=== PATIENT | male | born 1985 | race Caucasian/White ===

== ENCOUNTER 2020-02-10 14:10 | Emergency (ER) | payer MEDICAID, SELFPAY ==
[2020-02-10 14:17] VITALS: BP 113/73; PULSE 80; RESP 18; TEMP 37.1; O2SAT 100; BMI 22.6
--- NOTE | 2020-02-10 14:22 | HMH.EDGENADL ---
ED Disposition Clinical Impression: Bronchitis Disposition: Home, Self-Care Condition on Discharge: Good Referrals: PCP,No [Primary Care Provider] - - Critical Care Critical Care Time: No Attestation: On , the high probability of a clinically significant, sudden or life threatening deterioration of the following system(s) required my full and direct attention, intervention and personal management. The time I documented below is in addition to time spent performing reported procedures but includes the following listed in this critical care notation. Medical Decision Making - Medical Records Medical records reviewed: Yes: I reviewed the patient's medical records. - Aamir Inquiry Pt receiving controlled substance: No Vital Signs: 02/10/20 14:17 Temperature 98.7 F Temperature Source Oral Pulse Rate [Radial] 80 Respiratory Rate 18 Blood Pressure [Right Arm] 113/73 Blood Pressure Mean [Right Arm] 86 Blood Pressure Source [Right Arm] Automatic Cuff Blood Pressure Position [Right Arm] Sitting 02 Sat by Pulse Oximetry 100 Oxygen Delivery Method Room Air Orders (Tests/Meds): ORDERS Category Date Time Status Covid-19 Nasal PCR ([facility]) Routine Lab 02/10/20 14:21 Ordered Medical Decision Narrative: 34-year-old male presenting with cough, sore throat, malaise, nausea and decreased appetite. Nontoxic, afebrile, hemodynamically stable, oxygenating well on room air. Normal vital signs here. Benign exam. No meningismus. He does have some bronchospasm on exam and this is likely from bronchitis. I will prescribe him albuterol for this. I will also send off COVID-19 PCR. Further work-up is not indicated including chest x-ray today. He will follow up with PCP in 2 days. General Adult HPI - General Chief complaint: Upper Respiratory Infection Stated complaint: Sore throat, cough Time Seen by Provider: 02/10/20 14:22 Mode of Arrival: Ambulatory Limitations: No Limitations Description of Symptoms (Recalled from ER Triage Doc. by RN): FLU LIKE SYMPTOMS FOR 3 DAYS NOW. - History of Present Illness HPI narrative: This is a 34-year-old male who presents with a 2-day history of dry cough, sore throat, body aches nausea. He says marijuana makes his nausea better. Fever, chills, vomiting, shortness of breath, chest pain, rash, abdominal pain. No known sick contacts - Related Data Allergies Allergy/AdvReac Type Severity Reaction Status Date / Time vancomycin Allergy Verified 02/10/20 14:22 [facility] History - Hepatitis A Screen Drug use history?: Yes High risk sexual behaviors?: No History of sexually transmitted infection?: No Currently employed?: No Childcare worker?: No Do you have indoor plumbing?: Yes Do you have electricity?: Yes Attestation statement:: This patient has been screened for Hepatitis A risk factors. I have reviewed the patient's past medical history: Yes - Social History Smoking Status: Current every day smoker Tobacco Type: cigarettes # Packs/Day (cigarettes): 2 Alcohol Intake: never Substance Use Type: marijuana, opiates Occupational Status: other ROS Obtained: Yes All systems reviewed & no additional complaints Physical Exam General: well developed, well hydrated, no acute distress Head: Normocephalic, atraumatic EENT: airway patent, mucous membranes moist. extraocular muscles intact. external ears are within normal limits Neck: supple. trachea is midline Heart: rate is normal, rhythm is normal. No murmurs appreciated Lungs: Bronchospastic bilaterally with normal effort and good air movement. Symmetrical chest rise Abdomen/GI: soft, non-tender, non-distended. Extremities: global full range of motion. atraumatic. well-perfused. Neuro: Awake, alert and oriented to person, place, time and situation. Strength and sensation globally intact in all extremities. Skin: no pallor, cyanosis or jaundice. No rash. - General General appearance: alert - Respir
[2020-02-10 14:45] VITALS: BP 113/73; PULSE 80; RESP 18; TEMP 37.1; O2SAT 100
== END 2020-02-10 14:45 | disposition home or self-care (01) ==
LOC: ER 15:27
PROVIDERS: Emergency Provider Physician Assistant
DX: Z20.828 Contact with and (suspected) exposure to other viral communicable diseases (principal); J20.9 Acute bronchitis, unspecified; F12.10 Cannabis abuse, uncomplicated; F17.210 Nicotine dependence, cigarettes, uncomplicated
CPT/HCPCS: 99282; U0003

== ENCOUNTER 2020-04-28 14:50 | Emergency (ER) | payer MEDICAID, SELFPAY ==
--- NOTE | 2020-04-28 14:49 | ECG_ITS ---
APPROVED REPORT Exam: Resting ECG HR:64 bpm ECG Measurements Heart Rate 64 AXES RI 108 P 36 QRSd 82 QRS 57 QT 398 T 56 QTc 410 Conclusion Sinus rhythm with short RI Septal infarct, age undetermined Abnormal ECG Electronically signed by : Raffy Zungia, 04/30/2020 19:31:47
[2020-04-28 14:51] VITALS: BP 127/75; PULSE 65; RESP 18; TEMP 36.9; O2SAT 100; BMI 23.3
[2020-04-28 14:52] VITALS: BMI 23.3
--- NOTE | 2020-04-28 14:53 | XR_ITS ---
PROCEDURE: XR CHEST 2V CLINICAL HISTORY: cough Cough and congestion COMPARISON: No exams were available for comparison FINDINGS: The cardiomediastinal silhouette and pulmonary vascularity are within normal limits. The lungs are clear without infiltrates, suspicious nodules, or pleural effusions. No acute bony anomalies. There is fusion L1 and L2 vertebral bodies IMPRESSION: No acute findings. Dictated by: Jarett Brooks MD 04/28/2020 16:22 Jarett Brooks MD in [place] 04/28/2020 16:22
--- NOTE | 2020-04-28 15:01 | HMH.EDGENADL ---
ED Disposition Clinical Impression: Viral upper respiratory illness, Suspected COVID-19 virus infection, Exposure to COVID-19 virus Disposition: Home, Self-Care Condition on Discharge: Good Instructions: DI for COVID-19 (Suspected or Confirmed ) Additional Instructions: Quarantine for 10 days. Off work until quarantine is over. Call back to the emergency department in 3 hrs to obtain your COVID-19 test result. Quarantine yourself until you obtain your result. Return to the emergency room if worsening shortness of breath, severe weakness, vomiting and unable to keep down liquids. Referrals: PCP,No [Primary Care Provider] - - Critical Care Critical Care Time: No Attestation: On , the high probability of a clinically significant, sudden or life threatening deterioration of the following system(s) required my full and direct attention, intervention and personal management. The time I documented below is in addition to time spent performing reported procedures but includes the following listed in this critical care notation. Medical Decision Making - Aamir Inquiry Pt receiving controlled substance: No Vital Signs: 04/28/20 14:51 04/28/20 16:15 Temperature 98.4 F 98.2 F Temperature Source Oral Oral Pulse Rate 74 Pulse Rate [Right Radial] 65 Respiratory Rate 18 16 Blood Pressure 122/64 Blood Pressure [Right Arm] 127/75 Blood Pressure Mean [Right Arm] 92 Blood Pressure Source Automatic Cuff Blood Pressure Source [Right Arm] Automatic Cuff Blood Pressure Position Sitting Blood Pressure Position [Right Arm] Sitting 02 Sat by Pulse Oximetry 100 Oxygen Delivery Method Room Air Orders (Tests/Meds): ORDERS Category Date Time Status Covid-19 Nasal PCR Sendout P&C Routine Lab 04/28/20 15:00 Received - Radiology Data #1 Image(s): Chest Image Reviewed: Yes I reviewed the patient's radiology image Preliminary Findings: Normal/NAD - ECG Data Tracing #1 EKG interpreted by Osei Gonzalez MD: Rhythm: sinus Rate: 64 [place]: normal Ectopy: none Conduction: VT [address] Segment Changes: none T Wave Changes: none Q Waves: none Poor R wave progression - ANGELA Score for Non-Stemi Age of Patient: 30-39 years old Heart Rate: 50-69 bpm Systolic Blood Pressure: 120-139 mmhg CHF Killip Class: I-No CHF Other Risk Factors: None General Adult HPI - General Stated complaint: cough, sore throat Time Seen by Provider: 04/28/20 15:32 - History of Present Illness HPI narrative: Patient states I think I have Covid . States that his roommate was diagnosed on Monday, 6 days ago. He began getting symptoms yesterday. Said he had a headache last night, although he did go to work yesterday. Today has a dry cough associated with chest pain when he coughs. No vomiting or diarrhea. Occasionally feels a little short of breath. Denies fever. Has previously been tested for Covid once. - Related Data Previous Rx's Medication Instructions Recorded Albuterol Sulfate [Albuterol 6.7 gm IH Q4HP PRN #1 hfa.aer.ad 02/10/20 Sulfate Hfa] Benzonatate [Tessalon Perle 100mg 100 mg PO TID PRN #15 cap 02/10/20 Cap*] Allergies Allergy/AdvReac Type Severity Reaction Status Date / Time vancomycin Allergy Verified 02/10/20 14:22 [facility] History - Hepatitis A Screen Attestation statement:: This patient has been screened for Hepatitis A risk factors. I have reviewed the patient's past medical history: Yes - Social History Smoking Status: Current every day smoker Tobacco Type: cigarettes # Packs/Day (cigarettes): 2 Alcohol Intake: never Substance Use Type: marijuana, opiates Occupational Status: other ROS Obtained: Yes Systems reviewed as appropriate & no additional complaints - Constitutional Constitutional: Denies fever(s) - Respiratory Respiratory: Reports cough, Reports dyspnea, Denies excessive phlegm production, Reports pain with cough - Gastrointestinal
[2020-04-28 16:15] VITALS: BP 122/64; PULSE 74; RESP 16; TEMP 36.8; O2SAT 98
[2020-04-30 11:41] LABS: Covid-19 Nasal PCR Sendout P&C NEGATIVE
== END 2020-04-28 16:17 | disposition home or self-care (01) ==
PROVIDERS: Emergency Provider Emergency Medicine
DX: Z20.822 Contact with and (suspected) exposure to COVID-19 (principal); J06.9 Acute upper respiratory infection, unspecified; F17.210 Nicotine dependence, cigarettes, uncomplicated
CPT/HCPCS: 71046; 93005; 99282; U0004

== ENCOUNTER 2021-02-14 13:05 | Emergency (ER) | payer MEDICAID, SELFPAY ==
[2021-02-14 13:18] VITALS: BP 116/74; PULSE 64; RESP 17; TEMP 36.7; O2SAT 99; BMI 19.2
[2021-02-14 14:00] VITALS: BP 116/74; PULSE 64; RESP 17; TEMP 36.7; O2SAT 99; BMI 19.2
--- NOTE | 2021-02-14 14:46 | XR_ITS ---
PROCEDURE INFORMATION: Exam: XR Chest Exam date and time: 02/14/2021 2:46 PM Age: 35 years old Clinical indication: Other: Congestion; Additional info: Congestion, lung pain TECHNIQUE: Imaging protocol: XR of the chest. Views: 2 views. COMPARISON: CR XR CHEST 2V 04/28/2020 3:20 PM FINDINGS: Lungs: Unremarkable. No consolidation. Pleural spaces: Unremarkable. No pleural effusion. No pneumothorax. Heart/Mediastinum: Unremarkable. No cardiomegaly. Bones/joints: Unremarkable. IMPRESSION: No acute findings.
--- NOTE | 2021-02-14 14:56 | HMH.EDUTC ---
[facility] Disposition Clinical Impression: Bronchitis Disposition: Home, Self-Care Condition on Discharge: Good Instructions: Vertigo, DI for Cough -- Adult, DI for Pleurisy Additional Instructions: *Monitor Temp, Over the counter Motrin or Tylenol as directed/as needed Tylenol every 4 hours and Motrin every 6 hours (as long as your family doctor has told you that you can take it) for fever or pain. and straight to ER if unable to lower temp less than 101.0 after medication given *Warm salt water gargles may help to soothe the throat and help with mouth irritation *Throat Lozenges *Warm fluids like tea with honey may help to soothe the throat *Sleep elevated *Humidifier/Vaporizer Your throat swab was sent for culture. Those results are typically sent to your primary care. Be sure to follow up in 2-3 days with your family doctor/primary care physician if no improvement so they can review those result and treat if necessary. If you don?t have a primary care doctor, I recommend you get one but in the mean time, you will have to return to a walk in clinic Follow up IMMEDIATELY for new or worsening symptoms or no Noticeable improvement over the next 48-72 hours. 911 for difficulty breathing or swallowing You were tested for today for COVID19 your test result should be back in the next 24-48 hours, you can check your results on the [facility] portal to check your result if you have trouble logging on you may call You was given a handout with instructions for Self Quarantine and Self isolation for while you wait on test results and what to do if they are positive If you are positive the Health Dept will be contacting you also Make sure to take your Vitamins Vit. C Vit D and Zinc if you can take them Prescriptions: Albuterol Sulfate [Proventil-HFA 90mcg/puff Inh] 1 - 2 puffs IH Q4HP PRN #1 each PRN Reason: Shortness Of Breath Transmission Status: Received by [id number] Referrals: Provider,Referral, MD [Primary Care Provider] - As needed Forms: Work/School Release Time of Disposition: 15:25 Medical Decision Making - Aamir Inquiry Pt receiving controlled substance: No Aamir was queried for this patient: No Vital Signs: 02/14/21 13:18 02/14/21 14:00 02/14/21 15:26 Temperature 98.1 F 98.1 F 98.1 F Temperature Source Oral Oral Pulse Rate 64 Pulse Rate [Right Radial] 64 64 Respiratory Rate 17 17 17 Blood Pressure 116/74 Blood Pressure [Right Arm] 116/74 116/74 Blood Pressure Mean [Right Arm] 88 88 Blood Pressure Source [Right Arm] Automatic Cuff Automatic Cuff Blood Pressure Position [Right Arm] Sitting Sitting 02 Sat by Pulse Oximetry 99 99 Oxygen Delivery Method Room Air Room Air - Lab Data Lab Results 02/14/21 15:04: Strep Scn Rapid Clinic Negative Orders (Tests/Meds): ORDERS Category Date Time Status Covid-19 Nasal PCR ([facility]) Routine Lab 02/14/21 15:06 Received Strep Screen Confirmation Stat Micro 02/14/21 15:04 Received - Radiology Data #1 Image(s): Chest Preliminary Findings: Normal/NAD Medical Decision Narrative: Patient states that he is not felt light headed or dizzy today [facility] HPI - General Stated complaint: congestion and lung pain Time Seen by Provider: 02/14/21 14:58 Mode of Arrival: Ambulatory Source of Information: Patient Limitations: No Limitations Description of Symptoms (Recalled from Triage Doc. by RN): PATIENT C/O LUNG PAIN WITH BREATHING, LIGHTHEADED, AND IRRITATION TO ROOF OF MOUTH X 2 DAYS HEENT Symptoms (Recalled from RN notes): Yes Resp Symptoms (Recalled from RN notes): Yes Skin Symptoms (Recalled from RN notes): No MS Symptoms (Recalled from RN notes): No Functional Status (Recalled from RN notes): WNL - History of Present Illness Provider Complaint: Patient states that he is an everyday smoker States that he has been having pain on and off when he takes a deep breath and at times if he stands up to quickly felt like he got diz
[2021-02-14 15:26] VITALS: BP 116/74; PULSE 64; RESP 17; TEMP 36.7; O2SAT 99
[2021-02-14 19:02] LABS: UTC Strep Screen (Rapid) Negative (Negative)
== END 2021-02-14 15:29 | disposition home or self-care (01) ==
PROVIDERS: Emergency Provider Nurse Practitioner
DX: J20.9 Acute bronchitis, unspecified (principal); Z20.822 Contact with and (suspected) exposure to COVID-19; F17.210 Nicotine dependence, cigarettes, uncomplicated
CPT/HCPCS: 71046; 87880; 99202; C9803; G0463; U0003; U0005

== ENCOUNTER 2022-09-09 14:28 | Emergency (ER) | payer MEDICAID, SELFPAY ==
--- NOTE | 2022-09-09 14:36 | HMH.EDGENADL ---
Discharge Plan Disposition Patient Disposition: Home, Self-Care Prescriptions Prescriptions: New quetiapine [Seroquel] 25 mg tablet 25 mg PO BID 30 Days Qty: 60 0RF No Action buprenorphine-naloxone 1 EACH tablet, sublingual 1 each SL DAILY albuterol sulfate 200 PUFFS HFA aerosol inhaler 1 - 2 puffs IH Q4HP PRN (Reason: Shortness Of Breath) Qty: 1 0RF Referrals Follow up/Referrals: Provider,Referral, MD [Primary Care Provider] - See instructions Activity Restrictions/Add. Instructions Additional Instructions/Restrictions: Please take yuxn-pup-hslevkt MiraLAX half a cap twice a day doubling the dose every 3 days until you are on a dose that allows you to have the consistency of a bowel movement like soft serve ice cream daily for 2 weeks. An appointment has been made with Ellyn Motley to follow-up with your acute delusions and your schizophrenia and a prescription of reinitiation of Seroquel 25 mg twice a day has been given you will likely need to go up on this dose but this will lose could she started. Return with any suicidal ideations homicidal ideations or concerns of being a harm to yourself or others. Clinical Impressions Clinical Impression: Schizophrenia, Delusion, Constipation Discharge ED Provider: Soto Carter General Adult HPI General Stated complaint: abd pain, possibly constipated, possible schizoph Time Seen by Provider: 09/09/22 14:36 History of Present Illness HPI narrative: Patient is a 36-year-old male who presents with his friend today for 2 complaints including constipation and schizophrenia. States he was diagnosed with schizophrenia and has not had any problems with this for over 5 years. He was on Seroquel in the past and when he was on Seroquel his symptoms were well maintained. He states that since last week he has been having visual delusions of bugs and parasites that he states are melting into his skin and causing him significant discomfort. He is aware that these are not real as he has experienced this in the past his friend also has not visualized or seen any of the parasitic worms that his friend is complained about. Secondly he intermittently has constipation has tried some Colace in the enema at home and has some mild discomfort at the moment. But no significant abdominal pain. He requests follow-up here in [place] as he does not have any physicians here and to be initiated on some antipsychotic medications. Related Data Home Medications Medication Instructions Recorded Confirmed buprenorphine 8 mg-naloxone 2 mg 1 each SL DAILY ADDICTION 02/14/21 02/14/21 sublingual tablet Previous Rx's Medication Instructions Recorded albuterol sulfate 90 mcg/actuation 1 - 2 puffs IH Q4HP PRN Shortness 02/14/21 aerosol inhaler Of Breath #1 ea quetiapine 25 mg tablet (Seroquel) 25 mg PO BID 30 days #60 tabs 09/09/22 Allergies Allergy/AdvReac Type Severity Reaction Status Date / Time tigecycline [From Tygacil] Allergy Verified 02/14/21 14:15 vancomycin Allergy Verified 02/10/20 14:22 [facility] Disclaimer: The information contained in this section may have been updated after the patient was seen, as this information can be updated by other users. Social History Smoking Status: Current every day smoker tobacco type: cigarettes packs per day: 2 second hand exposure: Yes alcohol intake: never substance use type: marijuana and opiates current occupational status: other Travel in the last 8 weeks: None ROS Obtained: Yes All systems reviewed & no additional complaints except as documented Physical Exam General General appearance: alert and in no apparent distress Respiratory Respiratory exam: Present normal lung sounds bilaterally and respiratory distress Cardiovascular Cardiovascular exam: Present regular rate; Absent bradycardia Neurological Exam Neurological exam: Present alert and oriented X3 Medical Decision Making Aamir Inquiry
--- NOTE | 2022-09-09 14:43 | PC.NURSE ---
[facility] R[facility] AT
[2022-09-09 14:47] VITALS: BP 145/89; PULSE 92; RESP 16; TEMP 36.9; O2SAT 97; BMI 21.7
[2022-09-09 14:58] VITALS: BP 145/89; PULSE 92; RESP 16; TEMP 36.9; O2SAT 97
== END 2022-09-09 15:03 | disposition home or self-care (01) ==
PROVIDERS: Emergency Provider Student in an Organized Health Care Education/Training Program
DX: K59.00 Constipation, unspecified (principal); F20.89 Other schizophrenia; F17.210 Nicotine dependence, cigarettes, uncomplicated
CPT/HCPCS: 99284

== ENCOUNTER 2023-01-06 16:32 | Emergency (ER) | payer MEDICAID, SELFPAY ==
[2023-01-06 16:33] VITALS: BP 115/79; PULSE 72; RESP 17; TEMP 36.7; O2SAT 100; BMI 20.9
[2023-01-06 17:00] VITALS: BP 109/72; PULSE 69; O2SAT 100
--- NOTE | 2023-01-06 17:22 | CT_ITS ---
PROCEDURE INFORMATION: Exam: CT Head Without Contrast Exam date and time: 01/06/2023 5:44 PM Age: 37 years old Clinical indication: Other: Headache TECHNIQUE: Imaging protocol: Computed tomography of the head without contrast. Radiation optimization: All CT scans at this facility use at least one of these dose optimization techniques: automated exposure control; mA and/or kV adjustment per patient size (includes targeted exams where dose is matched to clinical indication); or iterative reconstruction. REPORTING DATA: Count of CT and Cardiac NM exams in prior 12 months: This patient has received 0 known CTs and 0 known cardiac nuclear medicine studies in the 12 months prior to the current study. COMPARISON: No relevant prior studies available. FINDINGS: Brain: Normal. No hemorrhage. Unremarkable white matter. No mass effect. Cerebral ventricles: No ventriculomegaly. Paranasal sinuses: Mild paranasal sinus disease. Mastoid air cells: Visualized mastoid air cells are well aerated. Bones/joints: Unremarkable. No acute fracture. Soft tissues: Unremarkable. IMPRESSION: No acute intracranial abnormality.
[2023-01-06 17:25] LABS: Chloride 102 mmol/L (98-107); Potassium 4.3 mmoL/L (3.5-5.1); Sodium 139 mmol/L (136-145)
--- NOTE | 2023-01-06 17:26 | HMH.EDABDPAI ---
Discharge Plan Disposition Patient Disposition: Home, Self-Care Chief Complaint: Abdominal Pain Prescriptions Prescriptions: No Action olanzapine [Zyprexa] 10 mg tablet 10 mg PO HS Qty: 30 1RF buprenorphine-naloxone 1 EACH tablet, sublingual 1 each sublingual DAILY albuterol sulfate 200 PUFFS HFA aerosol inhaler 1 - 2 puffs inhalation Q4HP PRN (Reason: Shortness Of Breath) Qty: 1 0RF quetiapine [Seroquel] 25 mg tablet 25 mg PO BID 30 Days Qty: 60 0RF Referrals Follow up/Referrals: Provider,Referral, MD [Primary Care Provider] - See instructions Activity Restrictions/Add. Instructions Additional Instructions/Restrictions: At this time it was felt you are safe to be discharged home. If new or worsening symptoms please do not hesitate to return the emergency department. If symptoms persist please follow-up with your family doctor as you are able. Clinical Impressions Clinical Impression: Headache, Flank pain Discharge ED Provider: Chris Perez Abdominal Pain HPI General Chief Complaint: Abdominal Pain Stated Complaint: aBD PAIN WITH BOTH SIDES Time Seen by Provider: 01/06/23 17:00 Mode of Arrival: Family Vehicle Source of Information: Patient Limitations: No Limitations Description of Symptoms (Recalled from ER Triage Doc. by RN): Pt c/o bilateral flank pain that radiates to mid abd occasionally. He also report nausea wo vomiting. States he has been feeling like this for about 1 wk and not getting any better . States he has been seen at [facility] 2x recently for anxiety issues and rule out heart attack. History of Present Illness HPI narrative: Patient is a 37-year-old female past medical history of anxiety comes in the ER for multiple complaints. Patient states he has bilateral flank pain that is waxing and waning, no current pain. He also has headache, has a history of headaches that he is poorly able to qualify. The current one is bitemporal and frontal, moderate to severe in intensity over the last 48 hours. There has been associated nonspecific dizziness. Denies chest pain, other acute complaints at this time. Patient is able to ambulate. Related Data Home Medications Medication Instructions Recorded Confirmed buprenorphine 8 mg-naloxone 2 mg 1 each sublingual DAILY ADDICTION 02/14/21 12/19/22 sublingual tablet Previous Rx's Medication Instructions Recorded albuterol sulfate 90 mcg/actuation 1 - 2 puffs inhalation Q4HP PRN 02/14/21 aerosol inhaler Shortness Of Breath #1 ea quetiapine 25 mg tablet (Seroquel) 25 mg PO BID 30 days #60 tabs 09/09/22 olanzapine 10 mg tablet (Zyprexa) 10 mg PO HS #30 tabs 12/09/22 Allergies Allergy/AdvReac Type Severity Reaction Status Date / Time tigecycline [From Tygacil] Allergy Verified 11/04/22 21:12 vancomycin Allergy Verified 11/04/22 21:12 [facility] Disclaimer: The information contained in this section may have been updated after the patient was seen, as this information can be updated by other users. Medical History (Updated 01/06/23 @ 19:29 by Chris Perez MD) History of asthma Surgical History (Updated 10/06/22 @ 13:36 by Ellyn Motley APRN) History of tonsillectomy Previous back surgery Social History (Updated 10/06/22 @ 13:35 by Ellyn Motley APRN) Smoking Status: Current every day smoker tobacco type: cigarettes packs per day: 2 second hand exposure: Yes alcohol intake: never substance use type: former substance user, marijuana, opiates, painkillers, IV drugs and methamphetamine counseling given: Yes (talked about testing; he does have Hep C) current occupational status: employed and other Travel in the last 8 weeks: None adopted: No caregiver/support person: No foster care: No household members: none housing: house lives independently: Yes marital status: single number of children: 0 number of grandchildren: 0 education level: other det
--- NOTE | 2023-01-06 17:27 | ECG_ITS ---
APPROVED REPORT Exam: Resting ECG HR:70 bpm ECG Measurements Heart Rate 70 AXES MA 125 P 70 QRSd 86 QRS 63 QT 392 T 64 QTc 413 Conclusion SINUS RHYTHM NORMAL ECG UNCONFIRMED REPORT Electronically signed by : Raffy Zuniga MD 01/08/2023 07:36:36
[2023-01-06 17:28] LABS: Alanine Aminotransferase 59 U/L (12-78); Albumin Level 4.4 g/dl (3.5-5.0); Albumin/Globulin Ratio 1.6 (1.1-1.8); Alkaline Phosphatase 51 U/L (38-126); Anion Gap 12.3 mEq/L (5-15); Aspartate Amino Transferase 65 U/L (17-59); Bilirubin,Total 0.7 mg/dl (0.2-1.3); Blood Urea Nitrogen 13 mg/dl (9-20); Calcium 8.9 mg/dl (8.4-10.2); Carbon Dioxide 29 mmol/L (22.0-30.0); Creatinine Clearance Estimated 103 mL/min (50-200); Estimated Glomerular Filt Rate 108 ml/min (>60); GFR (African American) 130 ML/MIN (>60); Globulin 2.8 g/dL (1.3-3.2); Glucose 107 mg/dl (74-100); Lipase 56 U/L (23-300); Total Protein,Serum 7.2 g/dl (6.3-8.2)
[2023-01-06 17:30] VITALS: BP 113/75; PULSE 70; RESP 18; O2SAT 100
[2023-01-06 17:34] LABS: Coronavirus 19, PCR Not Detected (NotDetected); Influenza A, PCR Not Detected (NotDetected); Influenza B, PCR Not Detected (NotDetected)
[2023-01-06 17:35] LABS: Basophils % 0.2 % (0.1-2.0); Eosinophils # 0.2 K/mm3 (0.0-0.4); Eosinophils % 2.1 % (0.1-12.0); Hematocrit 48.3 % (42.0-52.0); Hemoglobin 15.6 g/dL (14.1-18.0); Lymphocytes # 2.5 K/mm3 (0.7-4.5); Lymphocytes % 27.1 % (10-50); Mean Corpuscular HGB Conc 32.3 g/dL (31.8-35.4); Mean Corpuscular Hemoglobin 30.8 pg (27.0-31.2); Mean Corpuscular Volume 95.4 fl (80-94); Mean Platelet Volume 8.5 fl (7.4-10.4); Monocytes # 0.5 K/mm3 (0.1-1.0); Monocytes % 5.2 % (1.7-9.3); Neutrophils % 65.5 % (37.0-80.0); Platelet Count 225 K/mm3 (142-424); Red Blood Count 5.07 M/mm3 (4.60-6.20); Red Cell Distribution Width 13.1 % (11.5-17.5); White Blood Count 9.1 K/mm3 (4.8-10.8)
[2023-01-06 17:37] LABS: Magnesium 2.1 mg/dl (1.6-2.3)
--- NOTE | 2023-01-06 17:45 | PC.NURSE ---
Pt ambulatory to bathroom and urine sample collected
[2023-01-06 18:06] LABS: Microscopic, Urine URINE MICROSCOPIC (MICROSCOPIC)
[2023-01-06 18:09] LABS: Appearance,Urine CLEAR (Clear); Bilirubin,Urine Negative (Negative); Blood, Urine Negative (Negative); Color,Urine YELLOW (Yellow); Glucose,Urine (UA) Negative (Negative); Ketones,Urine Negative (Negative); Leukocyte Esterase,Urine Negative (Negative); Nitrate,Urine Negative (Negative); Protein,Urine Negative (Negative); Specific Gravity, Urine >= 1.030 (1.005-1.030)
[2023-01-06 18:30] VITALS: BP 101/69; PULSE 65; O2SAT 100
--- NOTE | 2023-01-06 19:41 | PC.NURSE ---
Started PO trial with water & crackers
[2023-01-06 19:53] VITALS: BP 117/80; PULSE 60; RESP 18; TEMP 36.6; O2SAT 100
== END 2023-01-06 19:56 | disposition home or self-care (01) ==
PROVIDERS: Emergency Provider Emergency Medicine
DX: R10.9 Unspecified abdominal pain (principal); R51.9 Headache, unspecified; R11.0 Nausea; F17.210 Nicotine dependence, cigarettes, uncomplicated; J45.909 Unspecified asthma, uncomplicated; B19.20 Unspecified viral hepatitis C without hepatic coma
CPT/HCPCS: 70450; 80053; 81001; 83690; 83735; 85025; 87636; 93005; 96361; 96374; 99285; J0131

== ENCOUNTER 2023-01-12 13:06 | Emergency (ER) | payer MEDICAID, SELFPAY ==
[2023-01-12 13:07] VITALS: BP 121/63; PULSE 70; RESP 16; TEMP 36.7; O2SAT 98; BMI 18.2
--- NOTE | 2023-01-12 13:10 | ECG_ITS ---
APPROVED REPORT Exam: Resting ECG HR:64 bpm ECG Measurements Heart Rate 64 AXES AK 93 P 51 QRSd 85 QRS 77 QT 401 T 63 QTc 411 Conclusion SINUS RHYTHM WITH SHORT AK INTERVAL BORDERLINE ECG UNCONFIRMED REPORT Electronically signed by : Raffy Zuniga MD 01/12/2023 17:15:56
--- NOTE | 2023-01-12 13:23 | XR_ITS ---
FINAL REPORT CLINICAL HISTORY: chest pain COMPARISON: 02/14/2022 FINDINGS: PA and lateral views of the chest were obtained. The cardiac and mediastinal silhouettes are within normal limits. The lungs are clear. There is no pleural effusion or pneumothorax. No acute osseous abnormality is identified. IMPRESSION: No radiographic evidence of acute cardiac or pulmonary disease. Reviewed, Interpreted and Dictated by Deena Sullivan MD Transcribed by Kisha Mcmahon Authenticated and [facility]
[2023-01-12 13:30] LABS: Basophils % 0.2 % (0.1-2.0); Eosinophils # 0.1 K/mm3 (0.0-0.4); Eosinophils % 1.4 % (0.1-12.0); Hematocrit 48.1 % (42.0-52.0); Hemoglobin 16.1 g/dL (14.1-18.0); Lymphocytes # 1.4 K/mm3 (0.7-4.5); Lymphocytes % 16.9 % (10-50); Mean Corpuscular HGB Conc 33.4 g/dL (31.8-35.4); Mean Corpuscular Hemoglobin 31.9 pg (27.0-31.2); Mean Corpuscular Volume 95.4 fl (80-94); Mean Platelet Volume 7.9 fl (7.4-10.4); Monocytes # 0.4 K/mm3 (0.1-1.0); Monocytes % 4.3 % (1.7-9.3); Neutrophils # 6.2 K/mm3 (1.8-7.8); Neutrophils % 77.2 % (37.0-80.0); Platelet Count 218 K/mm3 (142-424); Red Blood Count 5.05 M/mm3 (4.60-6.20); Red Cell Distribution Width 13.2 % (11.5-17.5); White Blood Count 8.1 K/mm3 (4.8-10.8)
[2023-01-12 13:32] LABS: Chloride 100 mmol/L (98-107)
[2023-01-12 13:33] LABS: Potassium 4.1 mmoL/L (3.5-5.1); Sodium 137 mmol/L (136-145)
[2023-01-12 13:35] LABS: Alanine Aminotransferase 56 U/L (12-78); Albumin Level 4.2 g/dl (3.5-5.0); Albumin/Globulin Ratio 1.5 (1.1-1.8); Alkaline Phosphatase 61 U/L (38-126); Anion Gap 12.1 mEq/L (5-15); Aspartate Amino Transferase 60 U/L (17-59); Bilirubin,Total 0.5 mg/dl (0.2-1.3); Blood Urea Nitrogen 13 mg/dl (9-20); Carbon Dioxide 29 mmol/L (22.0-30.0); Creatinine Clearance Estimated 90 mL/min (50-200); Estimated Glomerular Filt Rate 108 ml/min (>60); GFR (African American) 130 ML/MIN (>60); Globulin 2.8 g/dL (1.3-3.2)
[2023-01-12 13:36] LABS: Calcium 8.9 mg/dl (8.4-10.2); Glucose 109 mg/dl (74-100)
--- NOTE | 2023-01-12 13:37 | PC.NURSE ---
PT RETURNED FROM XR
[2023-01-12 13:52] LABS: Troponin I < 0.01 ng/ml (0.00-0.034)
[2023-01-12 14:00] VITALS: BP 118/76; PULSE 69; RESP 13; O2SAT 99
--- NOTE | 2023-01-12 14:19 | HMH.EDGENADL ---
Discharge Plan Disposition Patient Disposition: Home, Self-Care Condition: Good Prescriptions Prescriptions: New polyethylene glycol 3350 [Miralax] 17 gram/dose powder 17 g PO DAILY Qty: 238 0RF No Action nicotine 21 mg/24 hr patch 24 hour 1 patch transdermal DAILY Qty: 28 0RF olanzapine [Zyprexa] 10 mg tablet 10 mg PO HS Qty: 30 1RF quetiapine [Seroquel] 25 mg tablet 25 mg PO BID 30 Days Qty: 60 0RF paroxetine HCl [Paxil] 20 mg tablet 20 mg PO DAILY Qty: 30 1RF buprenorphine-naloxone 1 EACH tablet, sublingual 1 each sublingual DAILY Referrals Follow up/Referrals: Huyen Lincoln APRN [Primary Care Provider] - See instructions Activity Restrictions/Add. Instructions Additional Instructions/Restrictions: You were evaluated in the emergency department today. Please pharmacy picking technician your prescription for MiraLAX and take as prescribed for constipation. Follow-up with your primary care provider. Return to the emergency department for any new or worsening symptoms. Clinical Impressions Clinical Impression: Chest pain, Constipation Instructions Patient Instructions: DI for Atypical Chest Pain, DI for Constipation Discharge ED Provider: Funmilayo Montano General Adult HPI General Chief complaint: Chest Pain Stated complaint: Chest pain Time Seen by Provider: 01/12/23 13:18 Mode of Arrival: EMS Source of Information: Patient Limitations: No Limitations Description of Symptoms (Recalled from ER Triage Doc. by RN): Patient states he has had on and off chest pain and lightheadedness for 3 weeks now. States it hurts in the center of his chest, down his arm and into his jaw. Patient also complains of his armpits and mouth smelling badly, the possibility of being backed up or poisoned. History of Present Illness HPI narrative: This patient is a 37-year-old male with history of hepatitis C, schizophrenia, and polysubstance abuse presenting to the emergency department by EMS for evaluation with concern for chest pain. He states that is been going on for several weeks now. He states that he also has had unintentional weight loss because he has not had an appetite. He denies any fevers, chills, cough, congestion, vomiting, changes in bowel movements, or other concerns. Related Data Home Medications Medication Instructions Recorded Confirmed buprenorphine 8 mg-naloxone 2 mg 1 each sublingual DAILY ADDICTION 02/14/21 01/12/23 sublingual tablet Previous Rx's Medication Instructions Recorded nicotine 21 mg/24 hr daily 1 patch transdermal DAILY #28 ea 01/09/23 transdermal patch olanzapine 10 mg tablet (Zyprexa) 10 mg PO HS #30 tabs 01/09/23 paroxetine HCl 20 mg tablet (Paxil) 20 mg PO DAILY #30 tabs 01/09/23 quetiapine 25 mg tablet (Seroquel) 25 mg PO BID 30 days #60 tabs 01/09/23 polyethylene glycol 3350 17 17 g PO DAILY #238 grams 01/12/23 gram/dose oral powder (Miralax) Allergies Allergy/AdvReac Type Severity Reaction Status Date / Time tigecycline [From Tygacil] Allergy Verified 01/09/23 11:33 vancomycin Allergy Verified 01/09/23 11:33 [facility] Disclaimer: The information contained in this section may have been updated after the patient was seen, as this information can be updated by other users. Medical History Bronchitis Exposure to COVID-19 virus Generalized anxiety disorder History of asthma IV drug abuse Osteomyelitis Suspected COVID-19 virus infection Viral upper respiratory illness Surgical History History of tonsillectomy Previous back surgery Social History Smoking Status: Current every day smoker tobacco type: cigarettes packs per day: 2 second hand exposure: Yes alcohol intake: never substance use type: former substance user, marijuana, opiates, painkillers, IV drugs and methamphetamine
[2023-01-12 14:30] VITALS: BP 115/73; PULSE 60; RESP 15; O2SAT 99
--- NOTE | 2023-01-12 14:54 | PC.NURSE ---
Rounded on pt. Pt voiced that he was nauseous. notified.
[2023-01-12 15:11] VITALS: BP 117/78; PULSE 64; RESP 18; TEMP 37; O2SAT 99
== END 2023-01-12 15:11 | disposition home or self-care (01) ==
PROVIDERS: Emergency Provider Emergency Medicine; PCP Nurse Practitioner Family
DX: R07.89 Other chest pain (principal); R42 Dizziness and giddiness; R68.84 Jaw pain; M79.603 Pain in arm, unspecified; B19.20 Unspecified viral hepatitis C without hepatic coma; F41.1 Generalized anxiety disorder; F20.9 Schizophrenia, unspecified; F17.210 Nicotine dependence, cigarettes, uncomplicated
CPT/HCPCS: 71046; 80053; 84484; 85025; 93005; 99285

== ENCOUNTER → 2023-01-16 10:13 | Outpatient (CLI) | payer MEDICAID, SELFPAY | PROVIDERS: PCP Nurse Practitioner Family; Visit Provider Nurse Practitioner | DX: R00.2 Palpitations (principal); R07.9 Chest pain, unspecified | CPT/HCPCS: 93225 ==

== ENCOUNTER → 2023-01-19 01:10 | Outpatient (CLI) | payer MEDICAID, SELFPAY ==
[2023-01-23 21:55] LABS: Neisseria gonorrhoeae, NAA Negative (Negative)
== END ==
PROVIDERS: PCP Nurse Practitioner Family; Visit Provider Nurse Practitioner Family
DX: R39.15 Urgency of urination (principal); R39.11 Hesitancy of micturition
CPT/HCPCS: 87086; 87491; 87591

== ENCOUNTER → 2023-01-19 11:15 | Outpatient (CLI) | payer MEDICAID, SELFPAY ==
--- NOTE | 2023-01-19 09:13 | CA_ITS ---
APPROVED REPORT Exam: Exercise Treadmill Technologist: Sara Garcia, Ht: 5 ft 6 in Wt: 109 lbs BSA: 1.54 m2 HR: 79 bpm BP: 117/81 mmHg Rhythm: NSR Medical History Medications: Aspirin,,,,, Olanzapine,,,,, Quetiapine,,,,, BuPRenorphinE-Naloxone,,,,, PolyethYLENE GLYCOL,,,,, PaROXETINE HCI,,,,, Stress Test Details Test: Bert HR Resting HR: 91 bpm Max Heart Rate (APMHR): 181 bpm Max HR Achieved: 143 bpm Target HR (85% APMHR): 154 bpm % of APMHR: 79 Recovery HR: 87 bpm HR response to stress: Blunted HR response to stress BP Resting BP: 115.0/82 mmHg Max BP: 134/81 mmHg Recovery BP: 117.0/81.0 mmHg BP response to stress: Normal blood pressure response to stress. ECG Resting ECG: NSR, PVC, nonspecific ST changes in inferior leads Stress ECG: No significant ST changes Arrhythmia: None Recovery ECG: No significant ST changes Recovery Arrhythmia: None Clinical Exercise duration: 09:00 min Highest Stage Achieved: III Exercise capacity: 10.1 METs Overall Exercise Capacity for Age: Fair Stress ECG Conclusion This is a suboptimal nondiagnostic stress test due to inability to achieve target HR. The patient was able to exercise for a total of 9 minutes, 0 seconds. He achieved a total of 10.1 METS. He has poor exercise capacity compared to age and sex matched peers. He has a suboptimal blunted HR response to exercise. Max HR: 140 % of PM: 77% Max HR: 134/81 METs: 10.1 Test stopped due to: Light-headedness Symptoms: Light-headed, mild chest pressure, SOA. Arrhythmias/Ectopy: None ST-T Changes: No significant ST changes in the setting of inability to achieve target HR CONCLUSION This is a nondiagnostic ECG stress test due to inability to achieve target HR. Fair exercise capacity. No significant ST changes at the level of HR achieved. GXT only (no imaging). Due to nondiagnostic testing, further evaluation with CCTA is recommended to rule out coronary atherosclerosis, if clinically indicated. Test Summary REST . . . . . . . Sitting REST 03:56 0.0 0.0 91 . 115/ 82 . . Stage 1 01:00 10.0 1.7 104 . . . . Stage 1 02:00 10.0 1.7 106 . . . . Stage 1 03:00 10.0 1.7 110 . 116/ 70 . . Stage 2 01:00 12.0 2.5 117 . . . . Stage 2 02:00 12.0 2.5 115 . . . . Stage 2 03:00 12.0 2.5 117 . 118/ 70 . . Stage 3 01:00 14.0 3.4 133 . . . . Stage 3 02:00 14.0 3.4 138 . . . . Stage 3 03:00 14.0 3.4 133 . 118/ 70 . Stop exercise at 09:00 RECOVERY 01:00 0.0 0.0 111 . . . . RECOVERY 02:00 0.0 0.0 109 . 122/ 80 . . RECOVERY 03:00 0.0 0.0 102 . 122/ 80 . . RECOVERY 04:00 0.0 0.0 87 . 134/ 81 . . RECOVERY 05:00 0.0 0.0 88 . 117/ 81 . . RECOVERY 05:42 0.0 0.0 92 . 117/ 81 . . Electronically signed by : Maria Dolores Jones MD 02/04/2023 23:08:23
--- NOTE | 2023-01-19 11:18 | XR_ITS ---
FINAL REPORT CLINICAL HISTORY: constipation abd ap supine and upright FINDINGS: TWO-VIEW ABDOMEN Flat and upright views of the abdomen were obtained. There is a nonobstructive bowel gas pattern. There is a moderate amount of retained stool in the colon. There is no free air. There is no abnormal calcification. The bony structures are intact. IMPRESSION: Nonobstructive bowel gas pattern with a moderate amount of retained stool. Reviewed, Interpreted and Dictated by Caden Obregon III, MD Transcribed by Pricilla Powell Authenticated and [facility]
== END ==
PROVIDERS: PCP Nurse Practitioner Family; Visit Provider Nurse Practitioner Family
DX: K59.00 Constipation, unspecified (principal); R07.9 Chest pain, unspecified; R00.2 Palpitations
CPT/HCPCS: 74019; 93017